=== PATIENT | male | born 2005 | race Caucasian/White ===

== ENCOUNTER 2023-07-16 22:52 | Emergency (ER) | payer BC ==
[2023-07-17] MEDS ORDERED: Metoprolol Succinate 50 MG Tab.ER PO ONE (00:01)
[2023-07-17] MEDS ORDERED: Hydrochlorothiazide 25 MG Tab PO ONE (00:01)
[2023-07-17] MEDS ORDERED: Ketorolac 30 MG/ML SDV IM ONE (00:02)
[2023-07-17] MEDS ORDERED: cefTRIAXone 1 GM Vial IM ONE (00:02)
== END 2023-07-17 00:50 | disposition home or self-care (01) ==
LOC: FB.ED 22:52
DX: J02.8 Acute pharyngitis due to other specified organisms (principal); Z88.0 Allergy status to penicillin
CPT/HCPCS: 96372; 99283; J0696; J1885